=== PATIENT | female | born 1935 | race Two or more races ===

== ENCOUNTER 2019-06-19 18:19 | Inpatient (IN) | payer MEDICAID ==
[~2019-06-19] VITALS: Ht 157.5 cm; Wt 46.7 kg
--- NOTE | 2019-06-19 18:28 | NUR ---
R HIP PAIN S/P GLF TODAY, PT AWAKE, ALERT, -SOB, NAD NOTED, VSS, PENDING MD DONIS
--- NOTE | 2019-06-19 19:20 | NUR ---
XRAY AT BEDSIDE
--- NOTE | 2019-06-19 20:20 | NUR ---
GAVE MOVESHEET TO ADMITTING
[2019-06-19 20:36] LABS: BASOPHILS # (AUTO) 0.2 /CMM (0.0-0.2); BASOPHILS % (AUTO) 2.2 % (0.0-2.0); EOSINOPHILS % (AUTO) 0.7 % (0.0-6.0); HEMATOCRIT 39 % (33-45); HEMOGLOBIN 12.5 g/dL (11.5-14.8); MEAN CORPUSCULAR HGB CONC 32 g/dl (31.0-36.0); MEAN CORPUSCULAR VOLUME 92 fL (82-100); MONOCYTES # (AUTO) 0.4 /CMM (0.1-1.30); NEUTROPHILS # (AUTO) 5.8 /CMM (1.8-8.9); NEUTROPHILS % (AUTO) 78.1 % (43.0-81.0); PLATELET COUNT (AUTO) 194 /CMM (150-450); RED BLOOD CELL COUNT(AUTO) 4.17 MIL/uL (4.0-5.2); WHITE BLOOD COUNT (AUTO) 7.4 K/uL (4.3-11.0)
[2019-06-19 20:49] LABS: CALCIUM, SERUM 9.3 mg/dL (8.5-10.1); CREATININE 0.7 mg/dL (0.6-1.3); POTASSIUM 3.9 mmol/L (3.5-5.1)
[2019-06-19] MEDS ORDERED: MORPHINE SULFATE INJ 2 MG/ML DISP.SYRIN ONE (20:56)
[2019-06-19] MEDS ORDERED: MORPHINE SULFATE INJ 2 MG/ML DISP.SYRIN IV ONE (21:00)
--- NOTE | 2019-06-19 21:12 | NUR ---
CALLED MEKA BAZAN, PAGED JAMES MAHAN
--- NOTE | 2019-06-19 21:19 | NUR ---
309-1 [facility]
--- NOTE | 2019-06-19 21:59 | NUR ---
PAGED ORTHO 3X, NO ANSWER
--- NOTE | 2019-06-19 22:27 | NUR ---
DR. ARTEAGA ON THE PHONE WITH ORTHO
--- NOTE | 2019-06-19 22:28 | NUR ---
report given to kwaku white for bryan pt will be transported to 3rd floor when ortho accepts pt
[2019-06-19] MEDS ORDERED: MAG HYDROX/AL HYDROX/SIMETH 30 ML UDC PO PRN (22:30)
[2019-06-19] MEDS ORDERED: MAGNESIUM HYDROXIDE 30 ML UDC PO PRN (22:30)
[2019-06-19] MEDS ORDERED: ACETAMINOPHEN 325 MG TABLET PO PRN (22:30)
[2019-06-19] MEDS ORDERED: ONDANSETRON HCL/PF 4 MG/2 ML VIAL IVP PRN (22:30)
[2019-06-19] MEDS ORDERED: MORPHINE SULFATE INJ 2 MG/ML DISP.SYRIN IV PRN (22:30)
[2019-06-19] MEDS ORDERED: Z GUARD REMEDY 2 OZ OINT TP PRN (22:30)
--- NOTE | 2019-06-19 22:55 | NUR ---
RN OPEN NOTES RECEIVED PATIENT FROM ER VIA M[facility] WITH FAMILY AT BEDSIDE. A/OX1-2. CROATIAN SPEAKING. NO SIGNS OF DISTRESS OR DISCOMFORT. BREATHING EVEN AND UNLABORED. IV ACCESS IN RFA, PATENT AND INTACT, NO SIGNS OF REDNESS OR INFILTRATION. ORIENTED PATIENT AND FAMILY TO UNIT AND ROOM. BED IN LOW LOCKED POSITION WITH SIDE RAILS X2. CALL LIGHT WITHIN REACH. WILL CONTINUE TO MONITOR.
[2019-06-19 23:00] VITALS: BP 168/54
[2019-06-19] MEDS ORDERED: ENOXAPARIN SODIUM 30 MG/0.3 ML DISP.SYRIN SQ ONE (23:45)
[2019-06-20] MEDS: HYDROCODONE/APAP 5/325MG 1 EACH TABLET PO PRN ×3 (00:05→16:12)
[2019-06-20 04:00] VITALS: BP 139/51
--- NOTE | 2019-06-20 05:45 | NUR ---
RN NOTES RECEIVED ORDER FOR NORBERTO SOFT WRIST RESTRAINTS. PATIENT REMOVED VALENTIN CATHETER AND ALMOST REMOVED IV ACCESS. ATTEMPTED TO REORIENT AND REDIRECT WITH NO SUCCESS PATIENT STILL TRYING TO PULL OUT LINES. NOTIFIED SON MARY BETH REGARDING RESTRAINT NECESSITY AND VERBALIZED UNDERSTANDING. WILL CONTINUE TO MONITOR.
[2019-06-20 06:27] LABS: BASOPHILS % (AUTO) 0.2 % (0.0-2.0); EOSINOPHILS % (AUTO) 0.2 % (0.0-6.0); HEMATOCRIT 35 % (33-45); HEMOGLOBIN 11.6 g/dL (11.5-14.8); LYMPHOCYTES # (AUTO) 1.4 /CMM (0.8-4.8); LYMPHOCYTES % (AUTO) 19.4 % (20.0-44.0); MEAN CORPUSCULAR HGB CONC 33 g/dl (31.0-36.0); MEAN CORPUSCULAR VOLUME 92 fL (82-100); MONOCYTES # (AUTO) 0.7 /CMM (0.1-1.30); MONOCYTES % (AUTO) 9.4 % (2.0-12.0); NEUTROPHILS % (AUTO) 70.8 % (43.0-81.0); PLATELET COUNT (AUTO) 174 /CMM (150-450); RED BLOOD CELL COUNT(AUTO) 3.84 MIL/uL (4.0-5.2)
[2019-06-20 06:34] LABS: CREATININE 0.7 mg/dL (0.6-1.3); MAGNESIUM 2.1 mg/dL (1.8-2.4); PHOSPHORUS 3.7 mg/dL (2.5-4.9); POTASSIUM 4.3 mmol/L (3.5-5.1)
--- NOTE | 2019-06-20 07:00 | NUR ---
MS/RN Opening Pt received bed, Oriented to name, confused, able to response all stimuli. Respiratory even and unlabored, kept low position of bed with elevated HOB. Pt does no s/s of distress due to mittens restrain. Skin is warm and dry, IV site intact. Will continue to monitor.
--- NOTE | 2019-06-20 07:17 | NUR ---
RN closing NOTES PATIENT AWAKE IN BED. A/OX1-2. NIGERIAN SPEAKING. NO SIGNS OF DISTRESS OR DISCOMFORT. BREATHING EVEN AND UNLABORED. IV ACCESS IN RFA, PATENT AND INTACT, NO SIGNS OF REDNESS OR INFILTRATION. ON B. SOFT MITTEN RESTRAINTS WITH NO SKIN BREAKDOWN OR CIRCULATION ISSUES NOTED. ALL NEEDS MET. NO SIGNIFICANT CHANGES THROUGH THE NIGHT. BED IN LOW LOCKED POSITION WITH SIDE RAILS X2. CALL LIGHT WITHIN REACH. ENDORSED TO AM SHIFT FOR LIVIER.
[2019-06-20 08:00] VITALS: BP 145/61
[2019-06-20 09:40] VITALS: BP 145/61
--- NOTE | 2019-06-20 09:45 | NUR ---
Per Keiko Etienne : no surgery for today. PAtient can start on regular diet. Will f/u with ortho
--- NOTE | 2019-06-20 12:20 | NUR ---
Consent for procedure sighed by patients son and placed in the chart.
--- NOTE | 2019-06-20 14:00 | NUR ---
received a call from Keiko . Patient scheduled for surgery tomorrow 1730 pm and has to be NPO after breakfast.
[2019-06-20 16:00] VITALS: BP 122/62
--- NOTE | 2019-06-20 16:16 | NUR ---
F/c inserted using sterile technic. Clean and yellow urine noted, no bleeding noted.
--- NOTE | 2019-06-20 18:54 | NUR ---
MS/RN Closing note Pt in the bed comfortably, family member at bedside. Pt does no appears pain or any discomfort. Family member aware regarding tomorrow procedure will start at 1730 and NPO after breakfast. Skin is warm to touch, given Hicks catheter care, intact IV site. Kept low position of bed and elevated HOB. Call light within reach, will endorse car shifter.
--- NOTE | 2019-06-20 19:07 | NUR ---
Pt pulled out gutierrez catheter, no bleeding noted. Will endorse welt wheeler.
[2019-06-20 20:00] VITALS: BP 132/45
--- NOTE | 2019-06-20 20:00 | NUR ---
MS RN NOTES PATIENT AWAKE IN BED WITH NO DISTRESS NOTED. CALL LIGHT WITHIN REACH. FAMILY AT BEDSIDE. NO C/O PAIN OR DISCOMFORT. PERIPHERAL LINE INTACT AND PATENT. FC 16FR PLACED AND TOLERATED WELL. DRAINING CLEAR YELLOW URINE. BED IN LOW LOCK SETTING. ROOM FREE OF CLUTTER AND BELONGINGS KEPT NEAR BEDSIDE. WILL CONTINUE TO MONITOR
[2019-06-20] MEDS: ENOXAPARIN SODIUM 30 MG/0.3 ML DISP.SYRIN SQ SCH (21:00)
--- NOTE | 2019-06-20 21:13 | NUR ---
[address] [facility] HELD FOR SCHEDULED SURGERY TOMORROW
[2019-06-21] MEDS: HYDROCODONE/APAP 5/325MG 1 EACH TABLET PO PRN ×2 (02:44→18:16)
--- NOTE | 2019-06-21 05:57 | NUR ---
MS RN NOTES PATIENT ASLEEP IN BED WITH NO DISTRESS NOTED. CALL LIGHT WITHIN REACH. SITTER AT BEDSIDE. NO FURTHER C/O PAIN OR DISCOMFORT. FC INTACT AND PATENT. DRAINED 350ML YELLOW CLEAR URINE. BED IN LOW LOCK SETTING. ROOM FREE OF CLUTTER AND BELONGINGS KEPT NEAR BEDSIDE. WILL ENDORSE TO ONCOMING SHIFT
[2019-06-21 08:00] VITALS: BP 135/46
--- NOTE | 2019-06-21 08:00 | NUR ---
MS RN OPEN NOTES RECEIVED PATIENT A/OX1-2. LEBANESE SPEAKING. NO SIGNS OF DISTRESS OR DISCOMFORT. BREATHING EVEN AND UNLABORED. IV ACCESS IN RFA, PATENT AND INTACT, NO SIGNS OF REDNESS OR INFILTRATION. WITH 1:1 SITTER .WITH VALENTIN CATH DRAINING YELLOW TONY URINE -MODERATE IN AMT.ON NPO AFTER BREAKFAST DUE TO PENDING SX OF RT HIP IM RODDING WITH DR CARUSO THIS AFTERNOON. ALL CONSENTS AND CHECKLIST SIGNED AND DONE.BED IN LOW LOCKED POSITION WITH SIDE RAILS X2. CALL LIGHT WITHIN REACH. WILL CONTINUE TO MONITOR.
--- NOTE | 2019-06-21 15:00 | NUR ---
PT BROUGHT TO O.R. FOR RT HIP IM RODDING PROCEDURE WITH STABLE V/S.
[2019-06-21] MEDS ORDERED: BUPIVACAINE 0.5 % PF 150 MG/30 ML VIAL ONE ×2 (15:33→16:14)
[2019-06-21] MEDS ORDERED: BACITRACIN 50000 UNITS/VIAL ONE (15:33)
--- NOTE | 2019-06-21 17:40 | NUR ---
RETURN FROM OR- S/P R INTERMEDULLARY HIP PINNING PT CAME BACK FROM SURGERY WITH DR. PEREZ AT 1740 S/P R INTERMEDULLARY HIP PINNING.. REPORT RECEIVED FROM OR NURSE PAT RN, PT HAS NO COMPLAINTS OF PAIN OR DISCOMFORT. IV SITE INTACT ON R WRIST, VS CHECKED, NOTED AT 97.3, 141/52, 76, 18, 96% ON ROOM AIR. DR SETHI'S WITH ORDERS TO RESUME PREV ORDERS, AND ADVANCED DIET. AND TO DO PT IN AM WBAT ON RLE WITH ASSIST
--- NOTE | 2019-06-21 19:34 | NUR ---
Pt in bed, asleep at this time. Calm and comfortable. s/p R hip surgery. In stable condition. family buy bedside. RFA IV site intact. and patent. no s/s of infection or infiltration noted. gutierrez cath in place, patent, draining with clear and yellow urine. Endorsement provided to next shift.
--- NOTE | 2019-06-21 19:46 | NUR ---
MS RN OPENING NOTES Patient received resting in bd with family at bedside, a/o x1. Currently on 2L of O2 via NC, breathing even and unlabored, no signs of respiratory distress. No current complaints of pain and no signs of acute distress. Hicks catheter is in place, emptied by previous shift. IV located on RFA, patent and intact. Bed is in lowest position, breaks on, and call light within reach. Will continue to monitor.
[2019-06-21 20:00] VITALS: BP 114/67
[2019-06-21] MEDS: ENOXAPARIN SODIUM 30 MG/0.3 ML DISP.SYRIN SQ SCH (21:00)
--- NOTE | 2019-06-21 21:00 | NUR ---
MS RN NOTES NON ADMIN ENOXAPARIN, NOT UNTIL 24 HOURS POST OP PER MD.
[2019-06-21] MEDS: CEFAZOLIN 1 GM in IV D5W 50 ML IV SCH (23:38)
--- NOTE | 2019-06-22 06:04 | NUR ---
MS RN CLOSING NOTES PATIENT IS CURRENTLY RESTING IN BED WITH SITTER AT BEDSIDE A/O X1. ON 2L OF O2 VIA NC, NEEDED WITH BREATHING EVEN AND UNLABORED. NO SOB, NO SIGNS OF ACUTE DISTRESS. NO CURRENT COMPLAINTS OF PAIN. VALENTIN IS IN PLACE WITH YELLOW CLEAR URINE. IV LOCATED ON RFA G#20. ALL NEEDS WERE ATTENDED TO, PATIENT WAS KEPT CLEAN AND DRY. SAFETY PRECAUTIONS KEPT IN PLACE WITH BED IN LOWEST POSITION, BREAKS ON, AND CALL LIGHT WITHIN REACH. WILL ENDORSE TO ONCOMING SHIFT ABOUT LIVIER.
[2019-06-22 07:46] LABS: CALCIUM, SERUM 8.4 mg/dL (8.5-10.1); CREATININE 0.8 mg/dL (0.6-1.3); POTASSIUM 4.6 mmol/L (3.5-5.1)
[2019-06-22 08:00] VITALS: BP 123/51
--- NOTE | 2019-06-22 08:00 | NUR ---
MS RN OPENING NOTES RCEIVED PT IN BED. AWAKE ALERT AND ORIENTED X2 WITH PERIODS OF CONFUSION AND FORGETFULNES. BELARUSIAN SPEAKING ONLY. PT ATE BFAST. ANCEF 1G GIVEN SCHEDULED. TOLERATED WELL. NO ASE NOTED. VALENTIN CATH PATENT AND DRAINING WITH CLEAR YELLOW URINE. RFA IV SITE INTACT. PATENT. NO S/S OF INFECTION OR INFILTRATION NOTED. PT S/P SURGERY OF R HIP S/P INTERMEDULLARY RODDING. FALL RISK PRECAUTIONS IN PLACE. BED IN LOW POSITION. BED ALARM ON. SEEN BY PHYSICAL THERAPIST TODAY. WBAT ON RLE. PT IN STABLE CONDITION. FAMILY AT BEDSIDE.
[2019-06-22] MEDS: CEFAZOLIN 1 GM in IV D5W 50 ML IV SCH ×2 (08:09→16:37)
[2019-06-22 08:26] LABS: BASOPHILS % (AUTO) 0.1 % (0.0-2.0); HEMATOCRIT 27 % (33-45); HEMOGLOBIN 9.2 g/dL (11.5-14.8); LYMPHOCYTES # (AUTO) 0.7 /CMM (0.8-4.8); LYMPHOCYTES % (AUTO) 8.4 % (20.0-44.0); MEAN CORPUSCULAR HGB CONC 33 g/dl (31.0-36.0); MEAN CORPUSCULAR VOLUME 92 fL (82-100); MONOCYTES % (AUTO) 11.8 % (2.0-12.0); NEUTROPHILS # (AUTO) 6.5 /CMM (1.8-8.9); NEUTROPHILS % (AUTO) 79.7 % (43.0-81.0); PLATELET COUNT (AUTO) 147 /CMM (150-450); RED BLOOD CELL COUNT(AUTO) 2.98 MIL/uL (4.0-5.2); WHITE BLOOD COUNT (AUTO) 8.2 K/uL (4.3-11.0)
[2019-06-22] MEDS: HYDROCODONE/APAP 5/325MG 1 EACH TABLET PO PRN ×2 (09:06→18:10)
[2019-06-22] MEDS: ENOXAPARIN SODIUM 40 MG/0.4 ML DISP.SYRIN SQ SCH (17:53)
--- NOTE | 2019-06-22 17:56 | NUR ---
KHUSHBOO RN CLOSING NOTES PT IN BED. AWAKE ALERT AND ORIENTED X 1. FAMILY BY BEDSIDE. NO CARDIAC OR RESPIRATORY DISTRESS NOTED. ADMINISTERED 4PM DOSE OF ANCEF. TOLERATED WELL NO ASE. NOTED. IV SITE INTACT AND PATENT TO RFA 20G. NO S/S OF INFILTRATION OR INFECTION NOTED. NO COMPLAINTS OF PAIN OR DISCOMFORT AT THIS TIME. SURGICAL INCISION WITH ROYA NOTED ON R HIP. NO BLEDDING OR S/S OF INFECTION NOTED. PT WAS SEEN BUT PT TODAY. PT RECOMMENDS SNF. PT UNABLE TO AMBULATE AT THIS TIME. ABLE TO STAND BUT WITH MAX ASSIST. WILL CONT TO MONITOR AND ENDORSE TO NEXT SHIFT.
--- NOTE | 2019-06-22 19:30 | NUR ---
MS RN OPENING NOTE RECEIVED PATIENT IN BED. A/O X1, CONFUSED. TOLERATING ROOM AIR. RESPIRATIONS ARE EVEN AND UNLABORED. NO S/S SOB NOTED. DENIES PAIN AT THIS TIME. IV ACCESS IN RIGHT FOREARM #20 PATENT AND SALINE LOCKED. VALENTIN CATHETER IS PRESENT DRAINING TO GRAVITY. BED IS LOW AND LOCKED, HOB ELEVATED, SIDE RIALS UP X2. CALL LIGHT WITHIN REACH. WILL CONTINUE TO MONITOR.
[2019-06-22 20:00] VITALS: BP 141/62
[2019-06-22] MEDS: ZOLPIDEM TARTRATE 5 MG TABLET PO PRN (21:46)
--- NOTE | 2019-06-22 21:46 | NUR ---
MS RN NOTE ADMINISTERED PRN AMBIEN PER PATIENT REQUEST. WILL CONTINUE TO MONITOR.
--- NOTE | 2019-06-23 07:05 | NUR ---
MS RN CLOSING NOTE PATIENT IN BED. A/O X1, CONFUSED. TOLERATING ROOM AIR. RESPIRATIONS ARE EVEN AND UNLABORED. NO SOB NOTED. NO C/O OF PAIN THROUGHOUT SHIFT. IV ACCESS MAINTAINED IN RIGHT FOREARM #20 PATENT AND SALINE LOCKED. VALENTIN CATHETER REMAINS PRESENT DRAINING TO GRAVITY, URINE IS YELLOW, OUTPUT 1350ML. BED REMAINS LOW AND LOCKED, HOB ELEVATED, SIDE RIALS UP X2, SITTER AT BEDSIDE. CALL LIGHT WITHIN REACH. WILL ENDORSE TO NEXT SHIFT.
--- NOTE | 2019-06-23 07:51 | NUR ---
RN MS NOTES PT IN BED, AWAKE, WITH CONFUSION, NO SIGN OF PAIN, RESPIRATIONS NORMAL, SITTER AT BEDSIDE, SAFETY PRECAUTIONS OBSERVED, KEPT WARM AND COMFORTABLE, NEEDS ATTENDED.
[2019-06-23 08:00] VITALS: BP 144/69
--- NOTE | 2019-06-23 12:09 | NUR ---
RN MS NOTES PT IN BED, AWAKE, ALERT, WITH PERIODS OF CONFUSION, NO COMPLAINT OF PAIN AT THIS TIME, SEEN BY PHYSICAL THERAPIST, TOLERATED TREATMENT WELL, VISITED BY FAMILY, KEPT CLEAN AND COMFORTABLE, NEEDS ATTENDED.
[2019-06-23] MEDS: ENOXAPARIN SODIUM 40 MG/0.4 ML DISP.SYRIN SQ SCH (17:34)
--- NOTE | 2019-06-23 18:11 | NUR ---
RN MS NOTES PT IN BED, AWAKE, ALERT, WITH PERIODS OF CONFUSION, CALL LIGHT WITHIN REACH, F/C IN PLACE, DRAINING WELL WITH CLEAR, YELLOW URINE, FAMILY AT BEDSIDE, SAFETY PRECAUTIONS OBSERVED, PM CARE PROVIDED, ALL NEEDS ATTENDED.
--- NOTE | 2019-06-23 19:00 | NUR ---
rn picu: received report from rhina white. pt in bed, awake, a/o to self , confused, but able to make her needs known. met with pt's family at bed side. per family, pt were telling them she's unable to sleep well last night, so family requesting for sleeping pill for the pt. pt s/p right hip im rodding by dr russell on 06/21 dressing on right hip c/d/i, no active bleeding noted, per ortho okay to reinforce dressing when needed. ble offloaded on pillows. pt received with gutierrez catheter in placed, bag draining by gravity. sitter at bed side as pt kept trying to pull out gutierrez catheter. safety precautions for fall initiated, call light in reach, will continue monitoring pt.
[2019-06-23 20:00] VITALS: BP 156/53
[2019-06-23] MEDS: ZOLPIDEM TARTRATE 5 MG TABLET PO PRN (21:39)
--- NOTE | 2019-06-23 21:39 | NUR ---
prevelyn grimesien: requested by family, according to them, pt was saying she wasn't able to sleep last night. prn ambien administered at this time, per family request.
--- NOTE | 2019-06-23 21:46 | NUR ---
rn notes/snack: provided with snack, assisted pt in feeding, aspiration precaution initiated, kept upright. pt ate pudding and juice 100%, charlene patton present at bed side to aid with translation.
[2019-06-24 06:44] LABS: BASOPHILS % (AUTO) 0.3 % (0.0-2.0); EOSINOPHILS % (AUTO) 2.4 % (0.0-6.0); HEMATOCRIT 25 % (33-45); HEMOGLOBIN 8.2 g/dL (11.5-14.8); LYMPHOCYTES # (AUTO) 1.3 /CMM (0.8-4.8); LYMPHOCYTES % (AUTO) 19.5 % (20.0-44.0); MEAN CORPUSCULAR HGB CONC 33 g/dl (31.0-36.0); MEAN CORPUSCULAR VOLUME 92 fL (82-100); MONOCYTES # (AUTO) 0.8 /CMM (0.1-1.30); MONOCYTES % (AUTO) 12.8 % (2.0-12.0); NEUTROPHILS # (AUTO) 4.3 /CMM (1.8-8.9); PLATELET COUNT (AUTO) 193 /CMM (150-450); RED BLOOD CELL COUNT(AUTO) 2.67 MIL/uL (4.0-5.2); WHITE BLOOD COUNT (AUTO) 6.6 K/uL (4.3-11.0)
--- NOTE | 2019-06-24 06:51 | NUR ---
EOSS: PT REMAINS CONFUSED, A/O TO SELF ONLY. DENIES ANY PAIN OR DISCOMFORT, APPEARS CALM AND COMFORTABLE. VALENTIN CATHETER REMAINS IN PLACED. IV ACCESS REMAINS PATENT AND FLUSHING WELL, ON HL, COVERED WITH KERLIX FOR SAFETY. RIGHT HIP DRESSING REMAINS C/D/I, NO ACTIVE BLEEDING NOTED. BLE OFFLOADED ON PILLOWS. VS REMAINS STABLE, NEEDS ATTENDED. SAFETY PRECAUTIONS FOR FALL REMAINS ENGAGED, CALL LIGHT IN REACH, WILL ENDORSE TO DAY RN FOR CONTINUITY OF CARE.
[2019-06-24 06:59] LABS: CALCIUM, SERUM 8.2 mg/dL (8.5-10.1); CREATININE 0.7 mg/dL (0.6-1.3); PHOSPHORUS 1.8 mg/dL (2.5-4.9); POTASSIUM 4.1 mmol/L (3.5-5.1)
--- NOTE | 2019-06-24 07:47 | NUR ---
RN OPENING NOTES Patient received on room air, no sob noted, a/o x1, sitter at bedside the whole time. Hicks remains intact and is draining. R FA G20 hep lock. Awaiting for discharge planning at this time. No sob noted, bed at the lowest setting, call light within reach, side rails up x2.
[2019-06-24] MEDS ORDERED: NEUTRA PHOS 1 POWD.PACKET PO ONE (10:00)
[2019-06-24] MEDS ORDERED: ACET325T53 PO (13:02)
[2019-06-24] MEDS ORDERED: ENOX40DI SQ (13:02)
[2019-06-24] MEDS: ENOXAPARIN SODIUM 40 MG/0.4 ML DISP.SYRIN SQ SCH (17:33)
--- NOTE | 2019-06-24 18:26 | NUR ---
RN CLOSING NOTES Patient remains on room air, no sob noted, remains a/o x1 and shows no s/s of pain at this time. Patient remains with Hicks and is draining well. Claudia jw wants to keep Hicks at this time, but wants the IV line removed. Report given to RN kiara. Bed at the lowest setting, call light within reach, side rails up x2. Will give report to NOC RN for LIVIER bedside.
--- NOTE | 2019-06-24 19:00 | NUR ---
MS RN OPENING NOTES Received patient A/O X1, with confusion noted. On RA, no complaints made at this time. For discharge, awaiting for transportation, ETA 2000. Report given by AM shift. Family at bedside. Will continue to monitor.
[2019-06-24 20:00] VITALS: BP 138/68
--- NOTE | 2019-06-24 20:26 | NUR ---
MS RN NOTES Called [facility] [phone] followed up for the transportation of this patient. Per sorter operator, pick and shovel man time will delayed in 30-45min. Will continue to monitor accordingly.
--- NOTE | 2019-06-24 22:08 | NUR ---
MS COMMUNICATIONS ASSOCIATE NOTES Report given to EMT of [facility]. Patient is going to [facility], Room 17B. Patient in stable condition, no complaints of pain at this time. Transferred to [facility] with 3 persons assist. Discharge papers endorsed to EMT. Family at bedside during the discharge. Patient left the facility at this time.
== END 2019-06-24 22:00 | DRG 308 ==
LOC: ER 18:21 → MED 22:11 → MEDSG2 06-22 19:09
PROVIDERS: ADMIT Hospitalist; ATTEND Nurse Practitioner Acute Care
PROC: 0QS606Z Reposition Right Upper Femur with Intramedullary Internal Fixation Device, Open Approach (ICD-10-PCS; principal; 2019-06-21)
DX: M84.459A Pathological fracture, hip, unspecified, initial encounter for fracture (principal); G93.41 Metabolic encephalopathy; Z96.642 Presence of left artificial hip joint; Z86.19 Personal history of other infectious and parasitic diseases; W18.30XA Fall on same level, unspecified, initial encounter; Y93.89 Activity, other specified; Y92.481 Parking lot as the place of occurrence of the external cause
CPT/HCPCS: 36415; 71045-TC; 73501; 73552; 80048-TC; 80061-TC; 83735-TC; 84100-TC; 85025-TC; 85730-TC; 86850-TC; 87081-TC; 93307-TC; 97110-TC; 97112-TC; 97530-TC; A6253; G0378; J0690; J1650; J2270; J3490; J7050; J7060